=== PATIENT | female | born 1970 | race Caucasian/White ===

== ENCOUNTER 2020-08-27 17:52 | Emergency (ER) | payer OTHER ==
[2020-08-27] MEDS: Diphtheria,Pertussis(Acell),Tetanus Vaccine 0.5 ML Syringe IM ONE (19:09)
[2020-08-27] MEDS: Bacitracin/Neomycin/Polymyxin B Oint 0.9 GM U/D Packet TOP ONE (19:10)
--- NOTE | 2020-08-27 19:17 | EDM.PDOC ---
ED HPI GENERAL MEDICAL PROBLEM - General Chief Complaint: Laceration Stated Complaint: laceration Time Seen by Provider: 08/27/20 17:52 Source of Information: Reports: Patient History Limitations: Reports: No Limitations - History of Present Illness INITIAL COMMENTS - FREE TEXT/NARRATIVE: Patient comes emergency department today with complaints of an injury to her right thumb. Just prior to arrival the patient was at home when she was reaching down trying to grab something next to her chair when she lacerated her thumb on a broken bottle. This happened just prior to arrival. She had quite a bit of a sprain blood at home. She denies any other injury other than to the base of her right thumb. She denies any paresthesias. No loss of consciousness. She is unsure when her last tetanus shot was. Right hand Pain Score (Numeric/FACES): 6 - Related Data Allergies Allergy/AdvReac Type Severity Reaction Status Date / Time meperidine [From Demerol] Allergy Seizure Verified 08/27/20 17:54 Home Meds: Home Meds Citalopram Hydrobromide [Celexa] 20 mg PO DAILY 08/27/20 [History] Ibuprofen 800 mg PO Q6H PRN 08/27/20 [History] cephALEXin [Cephalexin] 500 mg PO QID #20 capsule 08/27/20 [Rx] lamoTRIgine [Lamictal] 200 mg PO QAM 08/27/20 [History] lamoTRIgine [Lamictal] 300 mg PO BEDTIME 08/27/20 [History] levETIRAcetam [Keppra] 750 mg PO BID 08/27/20 [History] Past Medical History HEENT History: Reports: Impaired Vision Cardiovascular History: Reports: None Respiratory History: Reports: None Gastrointestinal History: Reports: None Musculoskeletal History: Reports: None Neurological History: Reports: Seizure Psychiatric History: Reports: Depression Endocrine/Metabolic History: Reports: Obesity/BMI 30+ Dermatologic History: Reports: None - Past Surgical History HEENT Surgical History: Reports: Adenoidectomy, Oral Surgery, Tonsillectomy Social & Family History - Tobacco Use Tobacco Use Status *Q: Never Tobacco User Second Hand Smoke Exposure: No - Caffeine Use Caffeine Use: Reports: Soda - Recreational Drug Use Recreational Drug Use: No ED ROS GENERAL - Review of Systems Review Of Systems: Comprehensive ROS is negative, except as noted in HPI. ED EXAM, SKIN/RASH Exam: See Below Exam Limited By: No Limitations General Appearance: Alert, WD/WN, No Apparent Distress Respiratory/Chest: No Respiratory Distress Cardiovascular: Normal Peripheral Pulses, Regular Rate, Rhythm Peripheral Pulses: 2+: Radial (L), Radial (R) Extremities: Other (She is able to flex and extend at all the DIP PIP IP and MCP joints of all the fingers. The laceration does not extend into the pad of the palm primarily baseof palmar surface of the thumb). No: Normal Inspection (Isolated to the right hand. There is a full-thickness laceration at the base of the palmar surface of the right thumb approximately 4 cm in length that extends into the subcutaneous tissue with 2 arterial bleeders noted. CMS is intact appropriately to the right hand. ) Neurological: Alert, Oriented Psychiatric: Normal Affect, Normal Mood Skin: Warm, Dry, Intact, Normal Color ED SKIN PROCEDURES - Laceration/Wound Repair Right Digit - 1st (Thumb) Appearance: Subcutaneous, Stellate, Irregular, Clean Distal NVT: Neuro & Vascular Intact, No Tendon Injury Anesthetic Type: Local Local Anesthesia - Lidocaine (Xylocaine): 1% Plain Local Anesthetic Volume: Other (10) Skin Prep: Chlorhexidine (Hibiciens), Saline Saline Irrigation (cc's): 500 Exploration/Debridement/Repair: Wound Explored, In a Bloodless Field, Explored to Base, No Foreign Material Found, Multiple Flaps Aligned Lac/Wound length In cm: 4 Suture Size: 5-0 Suture Type: Nylon Sterile Dressing Applied: Nurse Tetanus Status Addressed: Yes Course - Orders/Labs/Meds Orders: Active Orders 24 hr Category Date Time Status Vaccines to be Administered [RC] PER UNIT ROUTINE Care 08/27/20 19:04 Active cephALEXin [Keflex] Med 08/27/20 19:12 Once 500 mg PO ONETIME ONE Meds: Medications Discontinued Medications Generic Name Dose Route Start Last Admin Trade Name Freq PRN Reason Stop Dose Admin Diphtheria/Tetanus/Acell Pertussis 0.5 ml 08/27/20 19:03 08/27/20 19:09 Diphtheria,Pertussis(Acell),Tetanus Vaccine 0.5 Ml Syringe IM 08/27/20 19:04 0.5 ml .ONCE ONE Administration Lidocaine HCl 10 ml 08/27/20 18:12 08/27/20 18:16 Lidocaine 1% 5 Ml Sdv INJECT 08/27/20 18:13 10 ml ONETIME ONE Administration Lidocaine HCl Confirm 08/27/20 18:51 08/27/20 19:11 Lidocaine 1% 5 Ml Sdv Administered 08/27/20 18:52 Not Given Dose 5 ml .ROUTE .STK-MED ONE Lidocaine HCl 5 ml 08/27/20 18:50 08/27/20 18:55 Lidocaine 1% 5 Ml Sdv INJECT 08/27/20 18:51 5 ml ONETIME ONE Administration Neomycin/Polymyxin/Bacitracin 1 each 08/27/20 19:03 08/27/20 19:10 Bacitracin/Neomycin/Polymyxin B Oint 0.9 Gm U/D Packet TOP 08/27/20 19:04 1 each ONETIME ONE Administration - Re-Assessments/Exams Free Text/Narrative Re-Assessment/Exam: 08/27/20 19:20 Initially I attempted to control the 2 arterial bleeders in the thumb by direct hemostatic pressure without success. I was unable to identify where the active bleeders were from. A tourniquet was placed on the right forearm. After the bleeding was controlled I was able to identify the 2 arterial bleeders that were causing the bleeding. Two 4-0 Vicryl sutures were placed with good hemostasis. The tourniquet was removed after about 10 minutes and there was no active bleeding. Please see procedure note for the repair of the rest of the laceration. Cephalexin 1 tab p.o. given in the emergency department for prophylactic infection. Tetanus was updated. Following the repair the patient was still able to flex and extend at the IP and MCP joint of the right thumb. CMS was intact appropriately. She had normal cap refill she had no change in her sensation. Departure - Departure Time of Disposition: 19:12 Disposition: Home, Self-Care 01 Clinical Impression: Thumb laceration Qualifiers: Encounter type: initial encounter Damage to nail status: without damage Foreign body presence: without foreign body Laterality: right Qualified Code(s): S61.011A - Laceration without foreign body of right thumb without damage to nail, initial encounter - Discharge Information Instructions: Laceration Care, Adult, [id number], Sutures, Isrrael, or Adhesive Wound Closure, [id number] Referrals: PCP,Not In Area [Primary Care Provider] - Additional Instructions: Cleanse the wound twice daily with soap and water. Bacitracin and bandage until healed. Do not soak the thumb in water. Running water over the top is fine. Sutures out in 10 days. Cephalexin 1 capsule 4 times a day for the next 5 days. First dose given in the ED and RX sent to [facility]. Return to the ED if new or worsening symptoms. Follow up with PCP if any concerns and sutures out in 10 days. - My Orders Last 24 Hours: My Active Orders 08/27/20 19:04 Vaccines to be Administered [RC] PER UNIT ROUTINE 08/27/20 19:12 cephALEXin [Keflex] 500 mg PO ONETIME ONE - Assessment/Plan Last 24 Hours: My Active Orders 08/27/20 19:04 Vaccines to be Administered [RC] PER UNIT ROUTINE 08/27/20 19:12 cephALEXin [Keflex] 500 mg PO ONETIME ONE
[2020-08-27] MEDS: Cephalexin 250 MG Cap PO ONE (19:21)
== END 2020-08-27 19:25 | disposition home or self-care (01) ==
LOC: LL.ED 17:52
DX: S61.011A Laceration without foreign body of right thumb without damage to nail, initial encounter (principal); Z88.5 Allergy status to narcotic agent; R56.9 Unspecified convulsions; E66.9 Obesity, unspecified; Z68.41 Body mass index [BMI] 40.0-44.9, adult; Z23 Encounter for immunization; W25.XXXA Contact with sharp glass, initial encounter; Y92.009 Unspecified place in unspecified non-institutional (private) residence as the place of occurrence of the external cause
CPT/HCPCS: 12002; 90471; 90715; 99283; 99283-25; A9270-GY